=== PATIENT | male | born 1985 | race Caucasian/White ===

== ENCOUNTER → 2021-11-06 | Outpatient (CLI) | payer BC | END | disposition home or self-care (01) | LOC: LAB SHORT 13:26 | DX: D17.22 Benign lipomatous neoplasm of skin and subcutaneous tissue of left arm (principal) | CPT/HCPCS: 88305 ==

== ENCOUNTER 2024-04-23 14:51 | Emergency (ER) | payer BC ==
[~2024-04-23] VITALS: Ht 170.2 cm; Wt 65.8 kg
[2024-04-23 14:55] VITALS: BP 138/83
== END 2024-04-23 17:40 | disposition home or self-care (01) ==
LOC: ER 14:51
DX: R04.0 Epistaxis (principal)
CPT/HCPCS: 30901; 99283-25